=== PATIENT | female | born 1995 | race Caucasian/White ===

== ENCOUNTER 2016-12-20 07:55 | Inpatient (IN) ==
--- OUTSIDE RECORDS SUMMARY | 2016-12-22 06:07 | External Medical Summary | Continuity of Care Document ---
:1995 Author Organization [facility] Allergies Active Description Code Type Severity Reaction Onset Reported/ Identified Relationship Clinical to Patient Status Yes No Known [id number] N/A N/A Drug 0 Allergies Yes No Known F0019 Drug Unknown N/A 08/07/2012 Drug 47607 Aller Allergies gy Medications Medication Packaging Start Date Stop Date Route Dosage Sig FERROUS SULFATE Tablet 09/25/2016 take 1 tablet by ORAL route every day Problems Date Dx Coded Attending Type Code Diagnosis Diagnosed By 08/07/2012 Ot 276.8 HYPOPOTASSEMIA 08/07/2012 Ot 780.2 SYNCOPE AND COLLAPSE 08/07/2012 Ot 780.4 DIZZINESS AND GIDDINESS 08/07/2012 Ot 785.1 PALPITATIONS 11/02/2013 GENET ARAGON DO Ot 786.50 CHEST PAIN NOS A 11/02/2013 GENET ARAGON DO Ot 847.1 SPRAIN THORACIC REGION A 11/02/2013 GENET ARAGON DO Ot 922.1 CONTUSION OF CHEST WALL A 11/02/2013 GENET ARAGON DO Ot 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 11/02/2013 GENET ARAGON DO Ot E849.[address]/HIGHW[address] A 03/23/2014 MAURA ARITA MD Ot 719.46 JOINT PAIN-L/LEG 03/23/2014 MAURA ARITA MD Ot V57.1 PHYSICAL THERAPY NEC 05/31/2015 Ot 493.90 05/31/2015 Ot 780.2 05/31/2015 Ot 786.09 05/31/2015 GENET ARAGON DO Ot 786.50 A 05/31/2015 GENET ARAGON DO Ot V71.4 A 08/18/2015 DIANE MASON Ot M53.88 11/28/2015 DIANE MASON Ot M53.88 OTH DORSOPATHIES, SACRAL AND SACROCOCCYG 04/07/2016 Ot 493.90 ASTHMA, UNSPECIFIED 04/07/2016 Ot 780.2 SYNCOPE AND COLLAPSE 04/07/2016 Ot 786.09 RESPIRATORY ABNORM NEC 04/07/2016 MARGOGENET FIELDS DO Ot 786.50 CHEST PAIN NOS A 04/07/2016 MARGO SHANNON ALVAREZHEN Ot V71.4 OBSERV-ACCIDENT NEC A 07/23/2016 Stephanie De León O09.892 Supervision of other high risk pregnancies, second trimester 07/23/2016 Stephanie De León O36.5920 Matern care for oth or susp poor fetl grth, 2nd tri, unsp 07/23/2016 Stephanie De León Z3A.18 18 weeks gestation of Procedures Code Description [place] [address] Ultrasnd exam of preg uterus, compl 07/23/2016 Results Encounters ACCT Visit Discharge Status Pt. Type Provider Facility Loc./Unit Complaint No. Date/Time [id number] 03/01/2014 03/23/2014 DIS Outpatient LYLA Tangela PT [facility] [id number] 09:13:00 17:00:[address] , [facility] [id number] 11/02/2013 11/02/2013 CLS Outpatient [facility] [id number] 13:30:00 23:59:59 [facility] [id number] 11/02/2013 11/02/2013 DIS Emergency [facility] ED [id number] 13:21:00 14:40:00 [facility] [id number] 08/13/2015 ACT Outpatient [facility] [id number] 15:42:00 ANAI [facility] [id number] 08/07/2012 Document [id number] 19:44:00 Registration [id number] 08/07/2012 Document [id number] 19:36:00 Registration
[2016-12-22] MEDS ORDERED: LIDOCAINE 1% (10mg/ml) 2mL INJ PF SDV ID PRN (06:08)
[2016-12-22] MEDS ORDERED: CALCIUM CARBONATE Chewable 500mg TABLET PO PRN (06:08)
[2016-12-22] MEDS ORDERED: METHYLERGONOVINE 0.2 MG/ML INJECTION IM PRN (06:08)
[2016-12-22] MEDS ORDERED: ACETAMINOPHEN 500 MG TABLET PO PRN (06:08)
[2016-12-22] MEDS ORDERED: MAG-AL + SIM ORAL LIQUID 30ml PO PRN (06:08)
[2016-12-22] MEDS ORDERED: CARBOPROST 250 MCG/ML INJECTION IM PRN (06:08)
[2016-12-22] MEDS: LR 1,000 ML IV PRN ×2 (06:32→15:13)
[2016-12-22] MEDS ORDERED: OXYTOCIN DRIP 30 UNIT/500 ML ML IV PRN (07:00)
[2016-12-22] MEDS ORDERED: D5LR 1,000 ML IV PRN (07:00)
[2016-12-22] MEDS ORDERED: AMPICILLIN 2 GM in NS 100 ML IV ONE (07:00)
[2016-12-22 07:01] VITALS: BMI 27.8
--- NOTE | 2016-12-22 08:44 | Anesthesia Preoperative Report ---
Anesthesia Epidural/Spinal Rec - Date and Time Date: 12/22/16 Preoperative Diagnosis: induction post term 40 2/7 weeks Plan: Epidural - Vital Signs Vital Signs: Temperature 98.1 F 12/22/16 06:40 Pulse Rate 71 12/22/16 06:40 Respiratory Rate 16 12/22/16 06:40 Blood Pressure 129/78 12/22/16 06:40 NPO since: mn /Para: P:0 Heart Rate: 130 - Medictaions & Allergies Inpatient Medications: Current Medications Acetaminophen (Tylenol) 500 - 1,000 mg PO Q4H PRN PRN Reason: Pain Al Hydroxide/Mg Hydroxide (Maalox Plus) 30 ml PO Q3H PRN PRN Reason: Indigestion Calcium Carbonate (Tums) 500 - 1,000 mg PO Q2H PRN PRN Reason: Indigestion Carboprost Tromethamine (Hemabate) 250 mcg IM O PRN PRN Reason: .Downtime Ampicillin Sodium 1 gm/ Sodium (Chloride) 100 mls @ 200 mls/hr IV Q4H KRISSY Lactated Ringer's (Lactated Ringers) 1,000 mls @ 1,000 mls/hr IV .Q1H PRN PRN Reason: as directed Last Admin: 12/22/16 06:32 Dose: 1,000 mls/hr Oxytocin (Pitocin Drip) 30 unit in 500 mls @ 2 mls/hr IV .Q24H PRN; Protocol PRN Reason: Induction/Augmentation Last Admin: 12/22/16 06:50 Dose: 2 mls/hr Dextrose/Lactated Ringer's (Dextrose 5%-Lactated Ringers) 1,000 mls @ 125 mls/ hr IV .Q8H PRN PRN Reason: Labor Last Admin: 12/22/16 06:50 Dose: 125 mls/hr Lidocaine HCl (Xylocaine-Mpf 1% Vial) 0.2 mg ID O PRN PRN Reason: IV Start Methylergonovine Maleate (Methergine) 0.2 mg IM O PRN Misoprostol (Cytotec) 800 mcg [place] ONCE PRN Allergies/Adverse Reactions: Allergies Allergy/AdvReac Type Severity Reaction Status Date / Time No Known Allergies Allergy Verified 12/22/16 06:59 - Home Medications Home Medications: Home Medications Medication Instructions Recorded Confirmed Type Ferrous Sulfate [Iron] 325 mg PO DAILY 12/11/16 12/22/16 History Tablet 1 tab DAILY 12/11/16 12/22/16 History - Medical History Respiratory: Reports: Asthma Cardiovascular: Reports: Other (anemia) - Surgical History Hx Family Anesthesia Reaction: No History of Motion Sickness: No - Social History Second Hand Exposure: No - Pertinent Findings Lab Data: CBC and BMP 12/22/16 06:27 - Physical Exam Respiratory Exam: lungs clear Cardiovascular Exam: regular rate and rhythm - Airway Assessment Mallampati Score: I TMD: 3 Fingerbreadths Neck Extension: good Overall Assessment: no airway concerns - ASA ASA Score: 2 - Discussion Discussion: Discussed risks/options/alternatives of anesthesia and questions answered. Patient consents. Nursing pain assessment noted. Anesthesia Discussion: family member Attestation Statement: Prior to the delivery of any anesthetic medication, I examined the patient, developed the plan, obtained the patient's consent and discussed the risk and benefits of the procedure with the patient/guardian.
[2016-12-22] MEDS: AMPICILLIN 1 GM in NS 100 ML IV SCH ×2 (10:40→14:30)
[2016-12-22] MEDS ORDERED: ONDANSETRON 4 MG/2 ML INJECTION IVP PRN (14:02)
[2016-12-22] MEDS ORDERED: ROPIVACAINE 1% 10MG/ML INJ 200 MG, SUFentanil 50 MCG in NS 100 ML EPI PRN (14:02)
[2016-12-22] MEDS ORDERED: DiphenhydrAMINE 50 MG/ML INJECTION IVP PRN (14:02)
[2016-12-22] MEDS ORDERED: NALOXONE 0.4 MG/ML INJECTION IVP PRN (14:02)
[2016-12-22] MEDS ORDERED: LIDOCAINE 2%/EPI 1:200,000 20ml SDV PF ONE (14:09)
[2016-12-22] MEDS ORDERED: SALINE FLUSH 10ml SYRINGE IVF PRN (16:34)
[2016-12-22] MEDS ORDERED: HYDROCORTISONE 2.5% CREAM 30gm RECTALLY PRN (16:34)
[2016-12-22] MEDS ORDERED: OXYTOCIN DRIP 30 UNIT/500 ML ML IV SCH (16:34)
[2016-12-22] MEDS ORDERED: DiphenhydrAMINE 25 MG CAPSULE PO PRN (16:34)
[2016-12-22] MEDS: HYDROCODONE/APAP 5mg/325mg TABLET PO PRN (23:18)
[2016-12-22] MEDS: IBUPROFEN 800 MG TABLET PO PRN (23:19)
[2016-12-23] MEDS: HYDROCODONE/APAP 5mg/325mg TABLET PO PRN ×2 (04:43→12:47)
--- NOTE | 2016-12-23 08:14 | OB/GYN Progress Note ---
OB-PP Progress Note - General PPD1 - Subjective Date: 12/23/16 Lochia: Minimal Pain: contolled Pain: Pain controlled with [place] and Ibuprofen Voiding: voiding Nausea or Vomiting Present: No - Objective Vital Signs: Last Vital Signs Temp 98.2 F 12/23/16 00:00 Pulse 77 12/23/16 00:00 Resp 18 12/23/16 00:00 BP 120/72 12/23/16 00:00 Pulse Ox 99 12/23/16 00:00 Urine Output: good General: alert and oriented Respiratory: non-labored Abdomen: fundus firm Extremities: non-tender - Assessment Assessment: - Plan Plan: routine care (Plans for home tomorrow. )
[2016-12-23] MEDS: DOCUSATE CALCIUM 240 MG CAPSULE PO SCH (12:47)
--- NOTE | 2016-12-23 13:44 | Labor and Delivery Note ---
DATE OF DELIVERY 12/22/2016 DELIVERY NOTE Jo is a 21-year-old 1 at 40 weeks 2 days gestational age who was brought in for Pitocin induction. She was also started on ampicillin due to her group B strep status. Her membranes were ruptured artificially returning clear fluids. She received an epidural. She progressed nicely throughout labor. She pushed for approximately an hour and a half and had a spontaneous vaginal delivery of a viable male infant, Apgars 8/9, weight 3645 g, name "Bright." Baby was initially placed on mom's abdomen and the cord clamping was delayed for more than two minutes. The placenta delivered spontaneously. She had a right periurethral laceration that was repaired with 2-0 chromic. She had a left vaginal laceration that extended down into a left first-degree perineal laceration that was repaired with 2-0 Vicryl. Both of her lacerations involved a torn vein. Good hemostasis was noted with the repairs but estimated blood loss was 400 ml. Mom and baby tolerated the delivery well. DEBRAD
[2016-12-23] MEDS: IBUPROFEN 800 MG TABLET PO PRN (17:09)
[2016-12-23 17:29] VITALS: O2SAT 98
[2016-12-24] MEDS: IBUPROFEN 800 MG TABLET PO PRN ×2 (05:22→13:23)
[2016-12-24 05:38] VITALS: RESP 16
--- NOTE | 2016-12-24 07:41 | OB/GYN Progress Note ---
OB-PP Progress Note - General PPD2 Maternal Group B Strep: Positive Maternal blood type: A+ Maternal Rubella Status: Immune - Subjective Date: 12/24/16 Lochia: Minimal Pain: contolled Voiding: voiding - Objective Vital Signs: Last Vital Signs Temp 98.3 F 12/24/16 05:22 Pulse 63 12/24/16 05:22 Resp 16 12/24/16 05:22 BP 103/64 12/24/16 05:22 Pulse Ox 98 12/23/16 17:05 Urine Output: good General: alert and oriented Abdomen: fundus firm, non-tender Extremities: non-tender - Assessment (1) (spontaneous vaginal delivery) Status: Acute (2) Group B Streptococcus carrier, delivered, current hospitalization Status: Acute - Plan Plan: routine care, discharge home, continue PNV
--- NOTE | 2016-12-24 07:44 | Discharge Instructions ---
Discharge Plan - Med Rec/Dispo Prescriptions: New Ibuprofen [Motrin] 800 mg PO Q8H PRN #30 tablet PRN Reason: Pain Hydrocodone/APAP 5/325 [[place]cup[place] 5/325] 1 - 2 tab PO Q4H PRN #20 tablet PRN Reason: Pain Continue Tablet 1 tab DAILY Discontinued Ferrous Sulfate [Iron] 325 mg PO DAILY Discharge Instructions/Outpatient Orders: Final Provider Discharge Instructions Location: Determined By Patient - Disposition 01 Discharged Home, Self-Care
[2016-12-24] MEDS: DOCUSATE CALCIUM 240 MG CAPSULE PO SCH (09:00)
[2016-12-24 12:48] VITALS: BP 101/64; PULSE 74; TEMP 98.2
== END 2016-12-24 15:59 | disposition home or self-care (01) | DRG 775 ==
LOC: MC 12-22 06:03
PROVIDERS: ADMIT Obstetrics & Gynecology; ATTEND Obstetrics & Gynecology